=== PATIENT | female | born 1960 | race Caucasian/White ===

== ENCOUNTER 2016-12-05 04:57 | Emergency (ER) | payer OTHER ==
[~2016-12-05] VITALS: Ht 152.4 cm; Wt 77.0 kg
[~2016-12-05 04:57] MED LIST: ABAT125S SQ; LEFL10TA15 PO; METH1POW21 SQ; METO25 PO; OMEP20 PO; VITAD400 PO
[2016-12-05] MEDS ORDERED: SODIUM CHLORIDE 0.9% 1,000 ML IV ONE (06:30)
[2016-12-05] MEDS ORDERED: ONDANSETRON HCL 4 MG/2 ML VIAL IVP ONE (06:30)
[2016-12-05] MEDS ORDERED: KETOROLAC TROMETHAMINE 30 MG/ML VIAL IVP ONE (06:30)
[2016-12-05 06:38] LABS: ANION GAP 10 mmol/L (8-16); CALCIUM, TOTAL 8.5 mg/dL (8.8-10.5); CARBON DIOXIDE 26 mmol/L (22-29); CHLORIDE 102 mmol/L (98-107); CREATININE 0.67 mg/dL (0.60-1.30); GLOMERULAR FILTR. RATE CALC > 60 mL/min (>60); POTASSIUM 3.5 mmol/L (3.5-5.1); SODIUM SERUM 138 mmol/L (136-145); UREA NITROGEN, BLOOD 7 mg/dL (7-18)
[2016-12-05 06:44] LABS: ALANINE AMINOTRANSFERASE 56 U/L (12-78); ALBUMIN 3.9 g/dL (3.4-5.0); ASPARTATE AMINOTRANSFERASE 37 U/L (15-37); BASOPHILS # (AUTO) 0.03 K/uL (0.00-0.20); BASOPHILS % (AUTO) 0.3 % (0.0-2.0); BILIRUBIN,TOTAL 0.4 mg/dL (0.1-1.0); EOSINOPHILS # (AUTO) 0.02 K/uL (0.00-0.70); EOSINOPHILS % (AUTO) 0.21 % (1.0-6.0); HEMATOCRIT 43.2 % (36-46); HEMOGLOBIN 14.1 g/dL (12.0-16.0); LYMPHOCYTES # (AUTO) 0.4 K/uL (1.0-4.8); LYMPHOCYTES % (AUTO) 4.9 % (22.0-44.0); MEAN CORPUSCULAR HEMOGLOBIN 28.6 pg (26.0-34.0); MEAN CORPUSCULAR HGB CONC 32.7 G/dL (31.0-37.0); MEAN CORPUSCULAR VOLUME 87 fL (80-100); MONOCYTES # (AUTO) 0.5 K/uL (0.1-1.0); MONOCYTES % (AUTO) 6.3 % (2.0-9.0); NEUTROPHILS # (AUTO) 7.4 K/uL (1.8-7.7); PLATELET COUNT (AUTO) 248 K/uL (150-450); RED BLOOD CELL COUNT(AUTO) 4.95 MIL/uL (4.00-5.20); RED CELL DISTRIBUTION WIDTH 13.4 % (11.5-14.5); TOTAL PROTEIN, SERUM 7.4 g/dL (6.4-8.2); WHITE BLOOD COUNT (AUTO) 8.4 K/uL (4.5-11.0)
[2016-12-05 06:55] LABS: NEUTROPHILS % (AUTO) 88.3 % (40.0-70.0)
[2016-12-05 06:56] LABS: INFLUENZA TYPE B NEGATIVE FOR TYPE B (NEGATIVE)
[2016-12-05] MEDS ORDERED: MORPHINE SULFATE 4 MG/ML SYRINGE IVP ONE (07:00)
[2016-12-05 08:30] VITALS: BP 142/75
[2016-12-05] MEDS ORDERED: ACETAMINOPHEN 500 MG TABLET PO ONE (09:30)
== END 2016-12-05 10:01 | disposition home or self-care (01) ==
LOC: EMS 04:58
DX: A41.9 Sepsis, unspecified organism (principal); J11.00 Influenza due to unidentified influenza virus with unspecified type of pneumonia; J18.9 Pneumonia, unspecified organism; J06.9 Acute upper respiratory infection, unspecified; I10 Essential (primary) hypertension; M19.90 Unspecified osteoarthritis, unspecified site; Z79.899 Other long term (current) drug therapy
CPT/HCPCS: 36415; 71010; 80053; 85025; 87804; 96361; 96374; 96375; 99285; J1885; J2270; J2405; J7030

== ENCOUNTER 2017-03-22 17:25 | Emergency (ER) | payer OTHER ==
[~2017-03-22] VITALS: Ht 152.4 cm; Wt 69.0 kg
[2017-03-22 18:34] LABS: BASOPHILS % (AUTO) 0.1 % (0.0-2.0); EOSINOPHILS % (AUTO) 3.2 % (1.0-6.0); HEMATOCRIT 39.3 % (36-46); HEMOGLOBIN 12.4 g/dL (12.0-16.0); LYMPHOCYTES # (AUTO) 1.9 K/uL (1.0-4.8); LYMPHOCYTES % (AUTO) 12.2 % (22.0-44.0); MEAN CORPUSCULAR HEMOGLOBIN 27.5 pg (26.0-34.0); MEAN CORPUSCULAR HGB CONC 31.7 G/dL (31.0-37.0); MEAN CORPUSCULAR VOLUME 87 fL (80-100); MONOCYTES # (AUTO) 1.1 K/uL (0.1-1.0); MONOCYTES % (AUTO) 6.7 % (2.0-9.0); NEUTROPHILS # (AUTO) 12.3 K/uL (1.8-7.7); NEUTROPHILS % (AUTO) 77.8 % (40.0-70.0); PLATELET COUNT (AUTO) 360 K/uL (150-450); RED BLOOD CELL COUNT(AUTO) 4.51 MIL/uL (4.00-5.20); RED CELL DISTRIBUTION WIDTH 13.3 % (11.5-14.5); WHITE BLOOD COUNT (AUTO) 15.9 K/uL (4.5-11.0)
[2017-03-22 18:41] LABS: ANION GAP 10 mmol/L (8-16); CALCIUM, TOTAL 8.6 mg/dL (8.8-10.5); CARBON DIOXIDE 26 mmol/L (22-29); CHLORIDE 100 mmol/L (98-107); CREATININE 0.84 mg/dL (0.60-1.30); GLOMERULAR FILTR. RATE CALC > 60 mL/min (>60); POTASSIUM 3.3 mmol/L (3.5-5.1); SODIUM SERUM 136 mmol/L (136-145); UREA NITROGEN, BLOOD 13 mg/dL (7-18)
[2017-03-22 18:44] LABS: INR 1.1 (0.9-1.1); PROTHROMBIN TIME 12.1 SEC (9.4-11.6)
[2017-03-22 18:48] LABS: ALANINE AMINOTRANSFERASE 24 U/L (12-78); ALBUMIN 3.2 g/dL (3.4-5.0); ASPARTATE AMINOTRANSFERASE 14 U/L (15-37); BILIRUBIN,TOTAL 1.8 mg/dL (0.1-1.0); TOTAL PROTEIN, SERUM 7.4 g/dL (6.4-8.2)
[2017-03-22] MEDS ORDERED: MetroNIDAZOLE 500 MG/NACL 100 ML IV ONE (19:00)
[2017-03-22] MEDS ORDERED: SODIUM CHLORIDE 0.9% 1,000 ML IV ONE (19:00)
[2017-03-22] MEDS ORDERED: LEVOFLOXACIN 500 MG/D5% WATER 100 ML IV ONE (19:00)
[2017-03-22] MEDS ORDERED: BARIUM SULFATE 0.1% SUSPENSION 450 ML BOTTLE PO ONE (19:30)
[2017-03-22] MEDS ORDERED: IOVERSOL 320 MG/ML 100 ML VIAL ONE (21:47)
[2017-03-23 00:42] VITALS: BP 117/73
== END 2017-03-23 00:49 | disposition home or self-care (01) ==
LOC: EMS 17:28
DX: K61.1 Rectal abscess (principal); K62.9 Disease of anus and rectum, unspecified; I10 Essential (primary) hypertension; M19.90 Unspecified osteoarthritis, unspecified site; Z79.899 Other long term (current) drug therapy
CPT/HCPCS: 36415; 74177; 80053; 85025; 85610; 85730; 96365; 96367; 99285; J1956; J3490; J7030; Q9967; Z7610

== ENCOUNTER 2017-08-06 08:26 | Emergency (ER) | payer OTHER ==
[~2017-08-06] VITALS: Ht 152.4 cm; Wt 68.2 kg
[2017-08-06] MEDS ORDERED: LISI-618 PO (08:34)
[2017-08-06] MEDS ORDERED: ASPI-1182 PO (08:34)
[2017-08-06] MEDS ORDERED: ZOLP10TA7 PO (08:34)
[2017-08-06 09:23] VITALS: BP 158/106
[2017-08-06] MEDS ORDERED: MORPHINE SULFATE 4 MG/ML SYRINGE IM ONE (09:45)
== END 2017-08-06 09:55 | disposition home or self-care (01) ==
LOC: EMS 08:27
DX: M06.871 Other specified rheumatoid arthritis, right ankle and foot (principal); M06.872 Other specified rheumatoid arthritis, left ankle and foot; I10 Essential (primary) hypertension
CPT/HCPCS: 96372; 99283; J2270

== ENCOUNTER 2017-10-27 09:29 | Emergency (ER) | payer OTHER ==
[~2017-10-27] VITALS: Ht 152.4 cm; Wt 69.0 kg
[~2017-10-27 09:29] MED LIST changes: +ASPI-1182 PO; +LISI-618 PO; +ZOLP10TA7 PO
[2017-10-27 09:58] VITALS: BP 144/85
[2017-10-27] MEDS ORDERED: IBUPROFEN 600 MG TABLET PO ONE (10:00)
== END 2017-10-27 11:44 | disposition home or self-care (01) ==
LOC: EMS 09:30
DX: S93.602A Unspecified sprain of left foot, initial encounter (principal); I10 Essential (primary) hypertension; X50.1XXA Overexertion from prolonged static or awkward postures, initial encounter; Y93.01 Activity, walking, marching and hiking; Y92.89 Other specified places as the place of occurrence of the external cause; Y99.8 Other external cause status
CPT/HCPCS: 99284

== ENCOUNTER 2018-05-27 07:21 | Emergency (ER) | payer OTHER ==
[~2018-05-27] VITALS: Ht 152.4 cm; Wt 72.7 kg
[~2018-05-27 07:21] MED LIST changes: +HYDR25TA PO; +PREG50 PO
[2018-05-27] MEDS ORDERED: ONDANSETRON HCL 4 MG/2 ML VIAL IVP ONE (08:15)
[2018-05-27] MEDS ORDERED: SODIUM CHLORIDE 0.9% 1,000 ML IV ONE (08:15)
[2018-05-27 08:33] LABS: BASOPHILS % (AUTO) 1.1 % (0.0-2.0); EOSINOPHILS % (AUTO) 3.9 % (1.0-6.0); HEMATOCRIT 40.6 % (36-46); HEMOGLOBIN 13.6 g/dL (12.0-16.0); LYMPHOCYTES # (AUTO) 1.9 K/uL (1.0-4.8); LYMPHOCYTES % (AUTO) 25.8 % (22.0-44.0); MEAN CORPUSCULAR HEMOGLOBIN 30.3 pg (26.0-34.0); MEAN CORPUSCULAR HGB CONC 33.5 G/dL (31.0-37.0); MEAN CORPUSCULAR VOLUME 91 fL (80-100); MONOCYTES # (AUTO) 0.7 K/uL (0.1-1.0); MONOCYTES % (AUTO) 9.5 % (2.0-9.0); NEUTROPHILS # (AUTO) 4.3 K/uL (1.8-7.7); NEUTROPHILS % (AUTO) 59.7 % (40.0-70.0); PLATELET COUNT (AUTO) 265 K/uL (150-450); RED BLOOD CELL COUNT(AUTO) 4.49 MIL/uL (4.00-5.20); RED CELL DISTRIBUTION WIDTH 14.8 % (11.5-14.5)
[2018-05-27 08:33] LABS: APPEARANCE,URINE CLOUDY (CLEAR); BILIRUBIN,URINE NEGATIVE (NEGATIVE); GLUCOSE, URINE (UA) NEGATIVE (NEGATIVE); KETONES,URINE NEGATIVE (NEGATIVE); LEUKOCYTE ESTERASE ,URINE TRACE (NEGATIVE); NITRATE,URINE NEGATIVE (NEGATIVE); OCCULT BLOOD,URINE NEGATIVE (NEGATIVE); PH,URINE 5.5 (5.0-8.0); PROTEIN,URINE NEGATIVE (NEGATIVE); UROBILINOGEN,URINE 0.2 mg/dL (<=1.0)
[2018-05-27 08:44] LABS: BACTERIA,URINE None Seen /HPF (None Seen); RBC,URINE None Seen /HPF (0-2); SQUAMOUS EPITHELIAL CELL,UR Moderate /LPF (None Seen)
[2018-05-27 08:45] LABS: CALCIUM, TOTAL 8.7 mg/dL (8.8-10.5); CREATININE 1.15 mg/dL (0.60-1.30); POTASSIUM 3.3 mmol/L (3.5-5.1)
[2018-05-27 08:51] LABS: ALBUMIN 3.7 g/dL (3.4-5.0); BILIRUBIN,TOTAL 0.5 mg/dL (0.1-1.0); TOTAL PROTEIN, SERUM 7.1 g/dL (6.4-8.2)
[2018-05-27 09:41] VITALS: BP 110/88
== END 2018-05-27 10:07 | disposition home or self-care (01) ==
LOC: EMS 07:23
DX: J02.8 Acute pharyngitis due to other specified organisms (principal); E86.0 Dehydration; M19.90 Unspecified osteoarthritis, unspecified site; I10 Essential (primary) hypertension; Z79.82 Long term (current) use of aspirin; Z79.899 Other long term (current) drug therapy
CPT/HCPCS: 36415; 80053; 81001; 85025; 87086; 96361; 96374; 99284; J2405; J7030

== ENCOUNTER 2018-07-05 09:46 | Emergency (ER) | payer OTHER ==
[~2018-07-05] VITALS: Ht 152.4 cm; Wt 72.7 kg
[2018-07-05 09:53] VITALS: BP 128/93
[2018-07-05] MEDS ORDERED: OxyCODONE HCL/ACETAMINOPHEN 5-325 MG TABLET PO ONE (11:30)
[2018-07-05] MEDS ORDERED: KETOROLAC TROMETHAMINE 60 MG/2 ML VIAL IM ONE (11:45)
== END 2018-07-05 11:55 | disposition home or self-care (01) ==
LOC: EMS 09:46
DX: M17.12 Unilateral primary osteoarthritis, left knee (principal); I10 Essential (primary) hypertension; Z79.899 Other long term (current) drug therapy
CPT/HCPCS: 99283

== ENCOUNTER 2018-09-03 09:45 | Emergency (ER) | payer OTHER ==
[~2018-09-03] VITALS: Ht 152.4 cm; Wt 75.5 kg
[~2018-09-03 09:45] MED LIST changes: -ABAT125S SQ; -ASPI-1182 PO; -LEFL10TA15 PO; -METH1POW21 SQ; -OMEP20 PO; -PREG50 PO; -VITAD400 PO; -ZOLP10TA7 PO
[2018-09-03 11:37] LABS: EOSINOPHILS % (AUTO) 3.1 % (1.0-6.0); HEMATOCRIT 38.5 % (36-46); HEMOGLOBIN 12.8 g/dL (12.0-16.0); LYMPHOCYTES # (AUTO) 1.7 K/uL (1.0-4.8); LYMPHOCYTES % (AUTO) 21.4 % (22.0-44.0); MEAN CORPUSCULAR HEMOGLOBIN 31.3 pg (26.0-34.0); MEAN CORPUSCULAR HGB CONC 33.3 G/dL (31.0-37.0); MEAN CORPUSCULAR VOLUME 94 fL (80-100); MONOCYTES # (AUTO) 0.6 K/uL (0.1-1.0); MONOCYTES % (AUTO) 7.8 % (2.0-9.0); NEUTROPHILS # (AUTO) 5.2 K/uL (1.8-7.7); NEUTROPHILS % (AUTO) 66.7 % (40.0-70.0); PLATELET COUNT (AUTO) 362 K/uL (150-450)
[2018-09-03 11:53] LABS: ANION GAP 7 mmol/L (8-16); CALCIUM, TOTAL 8.4 mg/dL (8.8-10.5); CARBON DIOXIDE 32 mmol/L (22-29); CHLORIDE 105 mmol/L (98-107); CREATININE 0.57 mg/dL (0.60-1.30); D-DIMER 0.67 mg/L FEU (0.00-0.50); GLOMERULAR FILTR. RATE CALC > 60 mL/min (>60); GLUCOSE,RANDOM 96 mg/dL (70-110); POTASSIUM 3.7 mmol/L (3.5-5.1); PROTHROMBIN TIME 10.7 SEC (9.4-11.6); SODIUM SERUM 144 mmol/L (136-145); UREA NITROGEN, BLOOD 12 mg/dL (7-18)
[2018-09-03 11:58] LABS: ALANINE AMINOTRANSFERASE 27 U/L (12-78); ALBUMIN 3.7 g/dL (3.4-5.0); ALKALINE PHOSPHATASE 85 U/L (46-116); ASPARTATE AMINOTRANSFERASE 18 U/L (15-37); BILIRUBIN,TOTAL 0.5 mg/dL (0.1-1.0); TOTAL PROTEIN, SERUM 6.7 g/dL (6.4-8.2)
[2018-09-03 12:07] LABS: B-TYPE NATRIURETIC PEPTIDE 19 pg/mL (0-100)
[2018-09-03] MEDS ORDERED: SODIUM CHLORIDE 0.9% 100 ML ONE (13:09)
[2018-09-03] MEDS ORDERED: IOVERSOL 350 MG/ML 100 ML VIAL ONE (13:09)
[2018-09-03] MEDS ORDERED: SODIUM CHLORIDE 0.9% 1,000 ML IV ONE (14:30)
[2018-09-03 15:10] VITALS: BP 149/70
== END 2018-09-03 15:26 | disposition home or self-care (01) ==
LOC: EMS 09:46
DX: F41.9 Anxiety disorder, unspecified (principal); R06.02 Shortness of breath; I10 Essential (primary) hypertension; Z79.899 Other long term (current) drug therapy
CPT/HCPCS: 36415; 71045; 71275; 80053; 83880; 84484; 85025; 85379; 85610; 85730; 93005; 99285; J7050; Q9967

== ENCOUNTER 2018-10-01 10:34 | Emergency (ER) | payer OTHER ==
[~2018-10-01] VITALS: Ht 152.4 cm; Wt 71.8 kg
[2018-10-01] MEDS ORDERED: BENA5TAB26 PO (10:50)
[2018-10-01] MEDS ORDERED: LEFL10TA15 PO (10:50)
[2018-10-01] MEDS ORDERED: METH2.5T6 PO (10:50)
[2018-10-01 12:42] VITALS: BP 156/99
[2018-10-01] MEDS ORDERED: HYDROCODONE/ACETAMINOPHEN 10-325 MG TABLET PO ONE (13:00)
== END 2018-10-01 13:44 | disposition home or self-care (01) ==
LOC: EMS 10:36
DX: K62.89 Other specified diseases of anus and rectum (principal); I10 Essential (primary) hypertension; Z79.899 Other long term (current) drug therapy

== ENCOUNTER 2018-10-23 09:39 | Emergency (ER) | payer OTHER ==
[~2018-10-23] VITALS: Ht 152.4 cm; Wt 54.5 kg
[~2018-10-23 09:39] MED LIST changes: +BENA5TAB26 PO; +LEFL10TA15 PO; +METH2.5T6 PO
[2018-10-23 10:21] VITALS: BP 134/80
[2018-10-23] MEDS ORDERED: OxyCODONE HCL/ACETAMINOPHEN 5-325 MG TABLET PO ONE (10:30)
== END 2018-10-23 12:14 | disposition home or self-care (01) ==
LOC: EMS 09:40
DX: M26.621 Arthralgia of right temporomandibular joint (principal); H92.01 Otalgia, right ear; I10 Essential (primary) hypertension; M19.90 Unspecified osteoarthritis, unspecified site; Z79.899 Other long term (current) drug therapy

== ENCOUNTER 2019-01-07 16:14 | Emergency (ER) | payer OTHER ==
[~2019-01-07] VITALS: Ht 152.4 cm; Wt 77.3 kg
[2019-01-07] MEDS ORDERED: PRED5 PO (16:20)
[2019-01-07] MEDS ORDERED: NAPR-1193 PO (16:20)
[2019-01-07] MEDS ORDERED: CYCLOBENZAPRINE HCL 10 MG TABLET PO ONE (17:15)
[2019-01-07] MEDS ORDERED: KETOROLAC TROMETHAMINE 60 MG/2 ML VIAL IM ONE (17:15)
[2019-01-07 17:50] VITALS: BP 141/82
== END 2019-01-07 18:02 | disposition home or self-care (01) ==
LOC: EMS 16:15
DX: S39.012A Strain of muscle, fascia and tendon of lower back, initial encounter (principal); M54.6 Pain in thoracic spine; M19.90 Unspecified osteoarthritis, unspecified site; I10 Essential (primary) hypertension; Z79.899 Other long term (current) drug therapy; Y04.0XXA Assault by unarmed brawl or fight, initial encounter; Y93.89 Activity, other specified; Y92.89 Other specified places as the place of occurrence of the external cause; Y99.8 Other external cause status
CPT/HCPCS: 96372; 99283; J1885

== ENCOUNTER 2019-09-13 07:05 | Emergency (ER) | payer OTHER ==
[~2019-09-13] VITALS: Ht 152.4 cm; Wt 75.0 kg
[~2019-09-13 07:05] MED LIST changes: +NAPR-1193 PO; +PRED5 PO
[2019-09-13 07:16] VITALS: BP 158/105
== END 2019-09-13 07:46 | disposition home or self-care (01) ==
LOC: EMS 07:05
DX: K02.9 Dental caries, unspecified (principal); I10 Essential (primary) hypertension; M19.90 Unspecified osteoarthritis, unspecified site; Z98.890 Other specified postprocedural states; Z79.899 Other long term (current) drug therapy

== ENCOUNTER 2020-07-29 18:05 | Emergency (ER) | payer OTHER ==
[~2020-07-29] VITALS: Ht 162.6 cm; Wt 70.5 kg
[~2020-07-29 18:05] MED LIST changes: +HYDR-1475 PO; -HYDR25TA PO
[2020-07-29 18:06] VITALS: BP 137/69
== END 2020-07-29 18:55 | disposition home or self-care (01) ==
LOC: EMS 18:05
DX: S60.562A Insect bite (nonvenomous) of left hand, initial encounter (principal); S60.561A Insect bite (nonvenomous) of right hand, initial encounter; S60.862A Insect bite (nonvenomous) of left wrist, initial encounter; S60.861A Insect bite (nonvenomous) of right wrist, initial encounter; S90.562A Insect bite (nonvenomous), left ankle, initial encounter; S90.561A Insect bite (nonvenomous), right ankle, initial encounter; B86 Scabies; I10 Essential (primary) hypertension; Z79.899 Other long term (current) drug therapy; W57.XXXA Bitten or stung by nonvenomous insect and other nonvenomous arthropods, initial encounter; Y93.89 Activity, other specified; Y92.89 Other specified places as the place of occurrence of the external cause; Y99.8 Other external cause status
CPT/HCPCS: Z7502

== ENCOUNTER → 2020-11-11 | Day surgery (SDC) | payer OTHER ==
[2020-11-10 13:33] LABS: COVID AG,FIA SOURCE NASOPHARYNGEAL
[~2020-11-11] MED LIST changes: -HYDR-1475 PO; -LEFL10TA15 PO; -LISI-618 PO; -NAPR-1193 PO; +OXYC-42 PO; +RINGERS SOLUTION,LACTATED 1,000 ML IV ONE
== END | disposition home or self-care (01) ==
LOC: EDSTATUS 07:30 → SDS 11:24
PROVIDERS: ATTEND Orthopaedic Surgery
DX: M19.90 Unspecified osteoarthritis, unspecified site (principal)
CPT/HCPCS: 87081; 87426; 93005

== ENCOUNTER 2021-02-06 10:22 | Emergency (ER) | payer OTHER ==
[~2021-02-06] VITALS: Ht 154.9 cm; Wt 72.7 kg
[~2021-02-06 10:22] MED LIST changes: +PRED-409 PO; -PRED5 PO; -RINGERS SOLUTION,LACTATED 1,000 ML IV ONE
[2021-02-06 10:23] VITALS: BP 130/77
[2021-02-06] MEDS ORDERED: OxyCODONE HCL/ACETAMINOPHEN 5-325 MG TABLET PO ONE (11:45)
== END 2021-02-06 12:16 | disposition home or self-care (01) ==
LOC: EMS 10:34
DX: M23.91 Unspecified internal derangement of right knee (principal); M23.92 Unspecified internal derangement of left knee; I10 Essential (primary) hypertension
CPT/HCPCS: 29505; 99283

== ENCOUNTER 2021-02-12 22:56 | Emergency (ER) | payer OTHER ==
[~2021-02-12] VITALS: Ht 152.4 cm; Wt 71.8 kg
[2021-02-13] MEDS ORDERED: OxyCODONE HCL/ACETAMINOPHEN 10-325 MG TABLET PO ONE
[2021-02-13] MEDS ORDERED: PredniSONE 20 MG TABLET PO ONE
[2021-02-13] MEDS ORDERED: KETOROLAC TROMETHAMINE 30 MG/ML VIAL IM ONE
[2021-02-13 01:12] VITALS: BP 136/82
== END 2021-02-13 01:44 | disposition home or self-care (01) ==
LOC: EMS 22:56
DX: M06.9 Rheumatoid arthritis, unspecified (principal); G89.29 Other chronic pain; M25.561 Pain in right knee; M25.562 Pain in left knee; I10 Essential (primary) hypertension
CPT/HCPCS: 96372; 99283; J1885; J7512

== ENCOUNTER 2021-04-28 05:00 | Day surgery (SDC) | payer OTHER ==
[~2021-04-28] VITALS: Ht 157.5 cm; Wt 73.6 kg
[2021-04-28] MEDS ORDERED: BUPIVACAINE LIPOSOME/PF 1.3%-13.3MG/ML SUSPENSION 20 ML VIAL INJ ONE (06:30)
[2021-04-28] MEDS ORDERED: TRANEXAMIC ACID 1,000 MG in DEXTROSE 5%-WATER 50 ML IV ONE (06:30)
[2021-04-28] MEDS ORDERED: RINGERS SOLUTION,LACTATED 1,000 ML IV ONE ×2 (07:05→07:30)
[2021-04-28] MEDS ORDERED: BACITRACIN 50,000 UNITS/VIAL ONE (08:47)
[2021-04-28] MEDS ORDERED: BUPIVACAINE HCL/PF 0.5% 30 ML VIAL ONE (08:47)
[2021-04-28] MEDS ORDERED: SODIUM CL IRRIG SOLN BAG 0 ML IRRIG ONE (08:47)
[2021-04-28 08:52] LABS: COVID AG,FIA SOURCE NASOPHARYNGEAL
[2021-04-28] MEDS ORDERED: FentaNYL CITRATE PF 100 MCG/2 ML VIAL IVP PRN (09:00)
[2021-04-28] MEDS ORDERED: ONDANSETRON HCL 4 MG/2 ML VIAL IVP PRN (09:00)
[2021-04-28] MEDS ORDERED: ZOLPIDEM TARTRATE 5 MG TABLET PO PRN (09:00)
[2021-04-28] MEDS ORDERED: OxyCODONE HCL/ACETAMINOPHEN 10-325 MG TABLET PO PRN (09:00)
[2021-04-28] MEDS ORDERED: CYCLOBENZAPRINE HCL 10 MG TABLET PO PRN (09:00)
[2021-04-28] MEDS ORDERED: MEPERIDINE-PF 25 MG/ML VIAL IVP PRN (09:00)
[2021-04-28] MEDS ORDERED: HYDROmorphone 2 MG/ML VIAL IVP PRN ×2 (09:00)
[2021-04-28] MEDS ORDERED: OXYGEN THERAPY IH SCH (20:00)
== END 2021-04-28 09:45 | disposition home or self-care (01) ==
LOC: SDS 05:00 → 4E 07:41 → UNDOADMIN 07:41 → UNDODISIN 09:45 → SDS 09:45 → EDSTATUS 10:00
PROVIDERS: ATTEND Orthopaedic Surgery
DX: M25.562 Pain in left knee (principal); Z53.8 Procedure and treatment not carried out for other reasons; M17.12 Unilateral primary osteoarthritis, left knee; I10 Essential (primary) hypertension; M06.9 Rheumatoid arthritis, unspecified
CPT/HCPCS: 87081; 87426; 93005; J7120; C9290; J3490; J7060

== ENCOUNTER 2021-07-14 05:50 | Inpatient (IN) | payer OTHER ==
[2021-07-13 15:43] LABS: COVID AG,FIA SOURCE NASOPHARYNGEAL
[~2021-07-14] VITALS: Ht 152.4 cm; Wt 73.0 kg
[~2021-07-14 05:50] MED LIST changes: +RINGERS SOLUTION,LACTATED 1,000 ML IV ONE
[2021-07-14] MEDS ORDERED: SERT-162 PO (06:36)
[2021-07-14] MEDS ORDERED: OXYC-43 PO (06:36)
[2021-07-14] MEDS ORDERED: BENA5TAB26 PO (06:36)
[2021-07-14] MEDS ORDERED: FOLI-130 PO (06:36)
[2021-07-14] MEDS ORDERED: ZOLP10TA8 PO (06:36)
[2021-07-14] MEDS ORDERED: METO50 PO (06:36)
[2021-07-14] MEDS ORDERED: CHOL-35 PO (06:36)
[2021-07-14] MEDS ORDERED: DICY10 PO (06:36)
[2021-07-14] MEDS ORDERED: METH2.5 PO (06:36)
[2021-07-14] MEDS ORDERED: DICY20TA2 PO (06:36)
[2021-07-14] MEDS ORDERED: PRED1 PO (06:36)
[2021-07-14] MEDS ORDERED: HYDR25TA2 PO (06:36)
[2021-07-14] MEDS ORDERED: OMEP10 PO (06:36)
[2021-07-14] MEDS ORDERED: BUPIVACAINE LIPOSOME/PF 1.3%-13.3MG/ML SUSPENSION 20 ML VIAL INJ ONE (07:00)
[2021-07-14] MEDS ORDERED: TRANEXAMIC ACID 1,000 MG in DEXTROSE 5%-WATER 50 ML IV ONE (07:00)
[2021-07-14] MEDS ORDERED: BUPIVACAINE HCL/PF 0.5% 30 ML VIAL ONE (07:23)
[2021-07-14] MEDS ORDERED: BUPIVACAINE HCL/PF 0.75% 10 ML VIAL ONE (07:46)
[2021-07-14] MEDS ORDERED: BUPIVACAINE HCL/DEX-WATER/PF 0.75% 2 ML AMP ITH ONE (07:46)
[2021-07-14] MEDS ORDERED: SODIUM CHLORIDE 0.9% 20 ML ONE (07:54)
[2021-07-14] MEDS ORDERED: BACITRACIN 50,000 UNITS/VIAL IRRIG ONE (08:45)
[2021-07-14] MEDS ORDERED: FentaNYL CITRATE PF 100 MCG/2 ML VIAL IVP PRN (09:15)
[2021-07-14] MEDS ORDERED: HYDROmorphone 2 MG/ML VIAL IVP PRN (09:15)
[2021-07-14] MEDS ORDERED: BISACODYL 10 MG RECTAL RECTAL SUPPOSITORY PR PRN (09:45)
[2021-07-14] MEDS ORDERED: ONDANSETRON HCL 4 MG/2 ML VIAL IVP PRN ×2 (09:45→10:00)
[2021-07-14] MEDS ORDERED: BENZOCAINE/MENTHOL LOZENGE PO PRN (09:45)
[2021-07-14] MEDS ORDERED: ACETAMINOPHEN 1000 MG/ISO-OSM 100 ML IV ONE ×2 (09:46→10:00)
[2021-07-14] MEDS ORDERED: CELECOXIB 200 MG CAPSULE PO ONE (10:00)
[2021-07-14 10:51] VITALS: BP 152/92
[2021-07-14] MEDS: HYDROmorphone 2 MG/ML VIAL IVP PRN ×2 (11:11→17:28)
[2021-07-14] MEDS ORDERED: OMEP20 PO (11:12)
[2021-07-14] MEDS ORDERED: OXYC-617 PO (11:12)
[2021-07-14] MEDS ORDERED: SERT-158 PO (11:12)
[2021-07-14] MEDS ORDERED: BENA10TA77 PO (11:12)
[2021-07-14] MEDS ORDERED: METO25 PO (11:12)
[2021-07-14 11:13] VITALS: BP 152/92
[2021-07-14] MEDS ORDERED: LIDOCAINE/PF 2% 5 ML VIAL IM ONE (12:00)
[2021-07-14] MEDS ORDERED: FentaNYL CITRATE PF 100 MCG/2 ML VIAL IVP ONE (12:00)
[2021-07-14] MEDS ORDERED: MIDAZOLAM HCL 2 MG/2 ML VIAL IVP ONE (12:00)
[2021-07-14] MEDS ORDERED: DEXAMETHASONE SOD PHOS 4 MG/ML VIAL IVP ONE (12:00)
[2021-07-14] MEDS ORDERED: PROPOFOL 1% 20 ML VIAL IVP ONE (12:00)
[2021-07-14] MEDS: CeFAZolin 1 GM/DEXTROSE 50 ML IV SCH ×2 (14:33→21:51)
[2021-07-14] MEDS ORDERED: PNEUMOCOCCAL VACCINE POLYVALENT 0.5 ML VIAL [PPSV23] IM. ONE (15:30)
[2021-07-14 15:43] VITALS: BP 138/80
[2021-07-14] MEDS: ACETAMINOPHEN 1000 MG/ISO-OSM 100 ML IV SCH (18:33)
[2021-07-14] MEDS: OXYGEN THERAPY IH SCH (20:00)
[2021-07-14] MEDS: FAMOTIDINE 20 MG TABLET PO SCH (20:14)
[2021-07-14] MEDS: DOCUSATE SODIUM 100 MG CAPSULE PO SCH (20:14)
[2021-07-14] MEDS: CYCLOBENZAPRINE HCL 10 MG TABLET PO PRN (20:14)
[2021-07-14 20:17] VITALS: BP 129/75
[2021-07-14 23:02] VITALS: BP 143/76
[2021-07-14] MEDS ORDERED: OMEPRAZOLE 20 MG CAPSULE PO PRN (23:30)
[2021-07-14] MEDS ORDERED: DICYCLOMINE HCL 20 MG TABLET PO PRN (23:30)
[2021-07-14] MEDS ORDERED: MELATONIN 3 MG TABLET PO PRN (23:30)
[2021-07-15] MEDS: HYDROmorphone 2 MG/ML VIAL IVP PRN ×4 (00:44→18:46)
[2021-07-15] MEDS: ACETAMINOPHEN 1000 MG/ISO-OSM 100 ML IV SCH (02:46)
[2021-07-15 05:52] VITALS: BP 140/79
[2021-07-15 06:34] LABS: BASOPHILS % (AUTO) 0.3 % (0.0-2.0); EOSINOPHILS % (AUTO) 0 % (1.0-6.0); HEMATOCRIT 28.6 % (36-46); HEMOGLOBIN 9.4 g/dL (12.0-16.0); LYMPHOCYTES # (AUTO) 1.3 K/uL (1.0-4.8); LYMPHOCYTES % (AUTO) 12.4 % (22.0-44.0); MEAN CORPUSCULAR HGB CONC 32.9 G/dL (31.0-37.0); MEAN CORPUSCULAR VOLUME 88 fL (80-100); MONOCYTES % (AUTO) 9.2 % (2.0-9.0); NEUTROPHILS # (AUTO) 8.3 K/uL (1.8-7.7); NEUTROPHILS % (AUTO) 78.1 % (40.0-70.0); PLATELET COUNT (AUTO) 338 K/uL (150-450); RED BLOOD CELL COUNT(AUTO) 3.25 MIL/uL (4.00-5.20); RED CELL DISTRIBUTION WIDTH 14.8 % (11.5-14.5)
[2021-07-15 07:03] LABS: ALANINE AMINOTRANSFERASE 17 U/L (12-78); ALBUMIN 2.7 g/dL (3.4-5.0); ALKALINE PHOSPHATASE 73 U/L (46-116); ANION GAP 10 mmol/L (8-16); ASPARTATE AMINOTRANSFERASE 15 U/L (15-37); BILIRUBIN,TOTAL 0.2 mg/dL (0.1-1.0); CARBON DIOXIDE 25 mmol/L (22-29); CHLORIDE 109 mmol/L (98-107); CREATININE 0.69 mg/dL (0.60-1.30); GLOMERULAR FILTR. RATE CALC > 60 mL/min (>60); GLUCOSE,RANDOM 137 mg/dL (70-110); POTASSIUM 4.2 mmol/L (3.5-5.1); SODIUM SERUM 144 mmol/L (136-145); TOTAL PROTEIN, SERUM 5.8 g/dL (6.4-8.2); UREA NITROGEN, BLOOD 14 mg/dL (7-18)
[2021-07-15] MEDS: OXYGEN THERAPY IH SCH ×2 (08:00→20:00)
[2021-07-15] MEDS: RIVAROXABAN 10 MG TABLET PO SCH (08:13)
[2021-07-15] MEDS: HYDROCHLOROTHIAZIDE 25 MG TABLET PO SCH (08:13)
[2021-07-15] MEDS: DOCUSATE SODIUM 100 MG CAPSULE PO SCH ×2 (08:13→20:43)
[2021-07-15] MEDS: CHOLECALCIFEROL (VIT D3) 1,000 UNITS [25 MCG] TABLET PO SCH (08:13)
[2021-07-15] MEDS: FOLIC ACID 1 MG TABLET PO SCH (08:13)
[2021-07-15] MEDS: METOPROLOL TARTRATE 25 MG TABLET PO SCH ×2 (08:13→20:43)
[2021-07-15] MEDS: FAMOTIDINE 20 MG TABLET PO SCH ×2 (08:13→20:43)
[2021-07-15] MEDS: SERTRALINE HCL 50 MG TABLET PO SCH (08:13)
[2021-07-15 08:36] VITALS: BP 151/94
[2021-07-15] MEDS: OxyCODONE HCL/ACETAMINOPHEN 10-325 MG TABLET PO PRN ×2 (09:30→20:43)
[2021-07-15 12:35] VITALS: BP 147/86
[2021-07-15 16:19] VITALS: BP 139/89
[2021-07-15] MEDS: BENAZEPRIL HCL 10 MG TABLET PO SCH (16:41)
[2021-07-15] MEDS: CYCLOBENZAPRINE HCL 10 MG TABLET PO PRN (20:43)
[2021-07-15] MEDS: ZOLPIDEM TARTRATE 10 MG TABLET PO SCH (20:43)
[2021-07-15 21:36] VITALS: BP 147/97
[2021-07-16] MEDS: OxyCODONE HCL/ACETAMINOPHEN 10-325 MG TABLET PO PRN ×5 (03:15→20:53)
[2021-07-16 05:15] VITALS: BP 146/85
[2021-07-16 06:40] LABS: BASOPHILS % (AUTO) 0.4 % (0.0-2.0); HEMATOCRIT 28.7 % (36-46); HEMOGLOBIN 9.5 g/dL (12.0-16.0); LYMPHOCYTES # (AUTO) 2.1 K/uL (1.0-4.8); LYMPHOCYTES % (AUTO) 19.8 % (22.0-44.0); MEAN CORPUSCULAR HEMOGLOBIN 28.7 pg (26.0-34.0); MEAN CORPUSCULAR HGB CONC 33.1 G/dL (31.0-37.0); MEAN CORPUSCULAR VOLUME 87 fL (80-100); MONOCYTES # (AUTO) 0.8 K/uL (0.1-1.0); MONOCYTES % (AUTO) 7.7 % (2.0-9.0); NEUTROPHILS # (AUTO) 7.4 K/uL (1.8-7.7); NEUTROPHILS % (AUTO) 71.1 % (40.0-70.0); PLATELET COUNT (AUTO) 314 K/uL (150-450); RED BLOOD CELL COUNT(AUTO) 3.32 MIL/uL (4.00-5.20); RED CELL DISTRIBUTION WIDTH 14.9 % (11.5-14.5)
[2021-07-16 06:57] LABS: ALANINE AMINOTRANSFERASE 16 U/L (12-78); ALBUMIN 2.9 g/dL (3.4-5.0); ALKALINE PHOSPHATASE 76 U/L (46-116); ANION GAP 8 mmol/L (8-16); ASPARTATE AMINOTRANSFERASE 14 U/L (15-37); BILIRUBIN,TOTAL 0.3 mg/dL (0.1-1.0); CALCIUM, TOTAL 7.9 mg/dL (8.8-10.5); CARBON DIOXIDE 27 mmol/L (22-29); CHLORIDE 105 mmol/L (98-107); CREATININE 0.59 mg/dL (0.60-1.30); GLOMERULAR FILTR. RATE CALC > 60 mL/min (>60); GLUCOSE,RANDOM 105 mg/dL (70-110); POTASSIUM 3.4 mmol/L (3.5-5.1); SODIUM SERUM 140 mmol/L (136-145); TOTAL PROTEIN, SERUM 6.2 g/dL (6.4-8.2); UREA NITROGEN, BLOOD 7 mg/dL (7-18)
[2021-07-16] MEDS ORDERED: POTASSIUM CHLORIDE 20 MEQ ER TABLET PO ONE (07:45)
[2021-07-16] MEDS: OXYGEN THERAPY IH SCH ×2 (08:00→20:00)
[2021-07-16 08:22] VITALS: BP 133/89
[2021-07-16] MEDS: FOLIC ACID 1 MG TABLET PO SCH (08:42)
[2021-07-16] MEDS: DOCUSATE SODIUM 100 MG CAPSULE PO SCH ×2 (08:42→20:53)
[2021-07-16] MEDS: CHOLECALCIFEROL (VIT D3) 1,000 UNITS [25 MCG] TABLET PO SCH (08:42)
[2021-07-16] MEDS: BENAZEPRIL HCL 10 MG TABLET PO SCH (08:42)
[2021-07-16] MEDS: HYDROCHLOROTHIAZIDE 25 MG TABLET PO SCH (08:42)
[2021-07-16] MEDS: FAMOTIDINE 20 MG TABLET PO SCH ×2 (08:42→20:53)
[2021-07-16] MEDS: SERTRALINE HCL 50 MG TABLET PO SCH (08:43)
[2021-07-16] MEDS: RIVAROXABAN 10 MG TABLET PO SCH (08:43)
[2021-07-16] MEDS: METOPROLOL TARTRATE 25 MG TABLET PO SCH ×2 (08:43→20:52)
[2021-07-16 15:18] VITALS: BP 138/89
[2021-07-16 20:00] VITALS: BP 130/76
[2021-07-16] MEDS: CYCLOBENZAPRINE HCL 10 MG TABLET PO PRN (20:52)
[2021-07-16] MEDS: ZOLPIDEM TARTRATE 10 MG TABLET PO SCH (20:53)
[2021-07-17 03:50] VITALS: BP 131/74
[2021-07-17] MEDS: OxyCODONE HCL/ACETAMINOPHEN 10-325 MG TABLET PO PRN ×2 (04:05→12:11)
[2021-07-17] MEDS: HYDROCHLOROTHIAZIDE 25 MG TABLET PO SCH (07:56)
[2021-07-17] MEDS: METOPROLOL TARTRATE 25 MG TABLET PO SCH (07:56)
[2021-07-17] MEDS: FAMOTIDINE 20 MG TABLET PO SCH (07:56)
[2021-07-17] MEDS: SERTRALINE HCL 50 MG TABLET PO SCH (07:57)
[2021-07-17] MEDS: DOCUSATE SODIUM 100 MG CAPSULE PO SCH (07:57)
[2021-07-17] MEDS: BENAZEPRIL HCL 10 MG TABLET PO SCH (07:57)
[2021-07-17] MEDS: CHOLECALCIFEROL (VIT D3) 1,000 UNITS [25 MCG] TABLET PO SCH (07:57)
[2021-07-17] MEDS: FOLIC ACID 1 MG TABLET PO SCH (07:57)
[2021-07-17] MEDS: RIVAROXABAN 10 MG TABLET PO SCH (07:58)
[2021-07-17] MEDS: OXYGEN THERAPY IH SCH (08:00)
[2021-07-17 08:06] LABS: BASOPHILS % (AUTO) 0.7 % (0.0-2.0); HEMATOCRIT 31.1 % (36-46); HEMOGLOBIN 10.1 g/dL (12.0-16.0); LYMPHOCYTES # (AUTO) 2.2 K/uL (1.0-4.8); LYMPHOCYTES % (AUTO) 20.9 % (22.0-44.0); MEAN CORPUSCULAR HEMOGLOBIN 28.6 pg (26.0-34.0); MEAN CORPUSCULAR HGB CONC 32.4 G/dL (31.0-37.0); MEAN CORPUSCULAR VOLUME 88 fL (80-100); MONOCYTES # (AUTO) 0.7 K/uL (0.1-1.0); MONOCYTES % (AUTO) 6.9 % (2.0-9.0); NEUTROPHILS # (AUTO) 7.2 K/uL (1.8-7.7); NEUTROPHILS % (AUTO) 69.5 % (40.0-70.0); PLATELET COUNT (AUTO) 312 K/uL (150-450); RED BLOOD CELL COUNT(AUTO) 3.53 MIL/uL (4.00-5.20); RED CELL DISTRIBUTION WIDTH 15.2 % (11.5-14.5)
[2021-07-17 08:15] LABS: ALANINE AMINOTRANSFERASE 19 U/L (12-78); ALBUMIN 2.9 g/dL (3.4-5.0); ALKALINE PHOSPHATASE 78 U/L (46-116); ANION GAP 11 mmol/L (8-16); ASPARTATE AMINOTRANSFERASE 14 U/L (15-37); BILIRUBIN,TOTAL 0.5 mg/dL (0.1-1.0); CALCIUM, TOTAL 8.3 mg/dL (8.8-10.5); CARBON DIOXIDE 26 mmol/L (22-29); CHLORIDE 103 mmol/L (98-107); CREATININE 0.76 mg/dL (0.60-1.30); GLOMERULAR FILTR. RATE CALC > 60 mL/min (>60); GLUCOSE,RANDOM 95 mg/dL (70-110); SODIUM SERUM 140 mmol/L (136-145); TOTAL PROTEIN, SERUM 6.5 g/dL (6.4-8.2); UREA NITROGEN, BLOOD 11 mg/dL (7-18)
[2021-07-17 08:18] VITALS: BP 111/77
[2021-07-17] MEDS: HYDROmorphone 2 MG/ML VIAL IVP PRN (09:01)
[2021-07-17] MEDS ORDERED: RIVA10TA PO (10:17)
[2021-07-17] MEDS ORDERED: PERCT PO (10:18)
[2021-07-17] MEDS ORDERED: DOCU-270 PO (15:10)
== END 2021-07-17 15:30 | disposition home health service (06) | DRG 326 ==
LOC: 6N 05:50
PROVIDERS: ADMIT Orthopaedic Surgery; ATTEND Orthopaedic Surgery
PROC: 0SRD0J9 Replacement of Left Knee Joint with Synthetic Substitute, Cemented, Open Approach (ICD-10-PCS; principal; 2021-07-14 07:37)
DX: M06.862 Other specified rheumatoid arthritis, left knee (principal); E44.0 Moderate protein-calorie malnutrition; I10 Essential (primary) hypertension; D64.9 Anemia, unspecified; Z82.49 Family history of ischemic heart disease and other diseases of the circulatory system; Z68.31 Body mass index [BMI] 31.0-31.9, adult; Z20.822 Contact with and (suspected) exposure to COVID-19
CPT/HCPCS: 80053; 84132; 85025; 87081; 88300; 90732; 97110; 97116; 97140; 97162; 97166; 97530; 97535; C9290; G0238; J0131; J0690; J1100; J1170; J2250; J2704; J3010; J3490; J7060; J7120

== ENCOUNTER 2021-10-11 15:20 | Emergency (ER) | payer OTHER ==
[~2021-10-11] VITALS: Ht 152.4 cm; Wt 75.5 kg
[~2021-10-11 15:20] MED LIST changes: +BENA10TA77 PO; -BENA5TAB26 PO; +CHOL-35 PO; +DICY20TA2 PO; +DOCU-270 PO; +FOLI-130 PO; +HYDR25TA2 PO; +METH2.5 PO; -METH2.5T6 PO; +OMEP20 PO; -OXYC-42 PO; +PERCT PO; -PRED-409 PO; +PRED1 PO; -RINGERS SOLUTION,LACTATED 1,000 ML IV ONE; +RIVA10TA PO; +SERT-158 PO; +ZOLP10TA8 PO
[2021-10-11] MEDS ORDERED: IBUPROFEN 600 MG TABLET PO ONE (17:15)
[2021-10-11] MEDS ORDERED: PredniSONE 20 MG TABLET PO ONE (17:15)
[2021-10-11 18:00] LABS: ANION GAP 7 mmol/L (8-16); CALCIUM, TOTAL 8.5 mg/dL (8.8-10.5); CARBON DIOXIDE 30 mmol/L (22-29); CHLORIDE 105 mmol/L (98-107); CREATININE 0.81 mg/dL (0.60-1.30); GLOMERULAR FILTR. RATE CALC > 60 mL/min (>60); GLUCOSE,RANDOM 124 mg/dL (70-110); POTASSIUM 3.8 mmol/L (3.5-5.1); SODIUM SERUM 142 mmol/L (136-145); UREA NITROGEN, BLOOD 24 mg/dL (7-18)
[2021-10-11 18:30] VITALS: BP 138/82
== END 2021-10-11 19:19 | disposition home or self-care (01) ==
LOC: EMS 15:25
DX: M06.842 Other specified rheumatoid arthritis, left hand (principal); M06.841 Other specified rheumatoid arthritis, right hand; I10 Essential (primary) hypertension; Z79.899 Other long term (current) drug therapy
CPT/HCPCS: 36415; 80048; 99283; J7512

== ENCOUNTER 2022-04-24 13:02 | Emergency (ER) | payer OTHER ==
[~2022-04-24] VITALS: Ht 152.4 cm; Wt 77.3 kg
[~2022-04-24 13:02] MED LIST changes: -CHOL-35 PO; +CHOL25TA4 PO; -DICY20TA2 PO; +DICY20TA95 PO; -DOCU-270 PO; +DOCU-385 PO
[2022-04-24 13:55] LABS: COVID AG,FIA SOURCE NASAL SWAB
[2022-04-24 13:57] LABS: BASOPHILS % (AUTO) 0.4 % (0.0-2.0); HEMATOCRIT 38.2 % (36-46); HEMOGLOBIN 12.7 g/dL (12.0-16.0); LYMPHOCYTES # (AUTO) 0.7 K/uL (1.0-4.8); MEAN CORPUSCULAR HEMOGLOBIN 29.9 pg (26.0-34.0); MEAN CORPUSCULAR HGB CONC 33.3 G/dL (31.0-37.0); MEAN CORPUSCULAR VOLUME 90 fL (80-100); MONOCYTES # (AUTO) 0.6 K/uL (0.1-1.0); MONOCYTES % (AUTO) 10.5 % (2.0-9.0); NEUTROPHILS # (AUTO) 4.6 K/uL (1.8-7.7); NEUTROPHILS % (AUTO) 77.1 % (40.0-70.0); PLATELET COUNT (AUTO) 326 K/uL (150-450); RED BLOOD CELL COUNT(AUTO) 4.25 MIL/uL (4.00-5.20); RED CELL DISTRIBUTION WIDTH 14.7 % (11.5-14.5)
[2022-04-24 14:03] LABS: ANION GAP 7 mmol/L (8-16); CALCIUM, TOTAL 8.5 mg/dL (8.8-10.5); CARBON DIOXIDE 28 mmol/L (22-29); CHLORIDE 103 mmol/L (98-107); CREATININE 0.57 mg/dL (0.60-1.30); GLOMERULAR FILTR. RATE CALC > 60 mL/min (>60); GLUCOSE,RANDOM 107 mg/dL (70-110); SODIUM SERUM 138 mmol/L (136-145); UREA NITROGEN, BLOOD 13 mg/dL (7-18)
[2022-04-24 14:09] LABS: ALANINE AMINOTRANSFERASE 51 U/L (12-78); ALBUMIN 3.3 g/dL (3.4-5.0); ALKALINE PHOSPHATASE 81 U/L (46-116); ASPARTATE AMINOTRANSFERASE 31 U/L (15-37); BILIRUBIN,TOTAL 0.2 mg/dL (0.1-1.0); TOTAL PROTEIN, SERUM 6.2 g/dL (6.4-8.2)
[2022-04-24 14:17] LABS: INFLUENZA TYPE A NEGATIVE FOR TYPE A (NEGATIVE)
[2022-04-24] MEDS ORDERED: HYDROCODONE/ACETAMINOPHEN 5-325 MG TABLET PO ONE (14:30)
[2022-04-24 14:35] VITALS: BP 152/94
[2022-04-24 14:41] LABS: INFLUENZA TYPE B POSITIVE FOR TYPE B (NEGATIVE)
== END 2022-04-24 15:15 | disposition home or self-care (01) ==
LOC: EMS 13:06
DX: J10.1 Influenza due to other identified influenza virus with other respiratory manifestations (principal); Z20.822 Contact with and (suspected) exposure to COVID-19; I10 Essential (primary) hypertension; M19.90 Unspecified osteoarthritis, unspecified site; R52 Pain, unspecified; Z96.653 Presence of artificial knee joint, bilateral; Z87.738 Personal history of other specified (corrected) congenital malformations of digestive system
CPT/HCPCS: 71046; 80053; 85025; 87804; 99284; 36415-L1; 36415-TC

== ENCOUNTER 2023-04-09 13:54 | Emergency (ER) | payer OTHER ==
[~2023-04-09] VITALS: Ht 154.9 cm; Wt 65.9 kg
[2023-04-09 14:02] VITALS: TEMP 98.8
[2023-04-09] MEDS ORDERED: OxyCODONE HCL/ACETAMINOPHEN 5-325 MG TABLET PO ONE (14:45)
[2023-04-09] MEDS ORDERED: LIDOCAINE 1% 10 ML VIAL SQ ONE (16:30)
[2023-04-09] MEDS ORDERED: LIDOCAINE 1% 20 ML VIAL SQ ONE (16:30)
[2023-04-09 16:45] VITALS: BP 145/76; PULSE 81; RESP 18
[2023-04-09] MEDS ORDERED: POLY238P PO (17:48)
[2023-04-09] MEDS ORDERED: PERCT PO (17:48)
== END 2023-04-09 18:49 | disposition home or self-care (01) ==
LOC: EMS 13:55
DX: S52.501A Unspecified fracture of the lower end of right radius, initial encounter for closed fracture (principal); M06.9 Rheumatoid arthritis, unspecified; Z96.652 Presence of left artificial knee joint; W19.XXXA Unspecified fall, initial encounter; Y93.89 Activity, other specified; Y92.89 Other specified places as the place of occurrence of the external cause; Y99.8 Other external cause status
CPT/HCPCS: 25605; 73090; 73110; 99284; J3490